=== PATIENT | female | born 1985 | race Caucasian/White ===

== ENCOUNTER 2017-06-26 14:19 | Emergency (ER) | payer SELFPAY ==
[2017-06-26] MEDS ORDERED: ONDANSETRON DISINTEGRATING 4 MG TAB PO ONE (15:06)
--- NOTE | 2017-06-26 15:41 | EDPHY ---
H & P Time Seen by Provider: 06/26/17 15:19 HPI/ROS: CHIEF COMPLAINT: Facial swelling HISTORY OF PRESENT ILLNESS: The patient is a 31-year-old female who presents emergency department with left facial swelling. Patient states that she has had a known cavity in her left upper tooth. For the past 2 days she has had increased left facial swelling. Her face is tender to touch and is uncomfortable. She describes her pain is moderate. She also has increased discomfort in her upper tooth. She reports a blister breaking inside of her mouth in the left upper side yesterday. She has had nausea and vomiting today. No fever. No abdominal pain. No dysuria frequency. No focal neurologic deficits. No headache. REVIEW OF SYSTEMS: My complete review of systems is negative except as mentioned in the HPI. Past Medical/Surgical History: Includes frontal movements disease, kidney stones, sepsis secondary to kidney infection," kidney issues" Past surgical history: Cholecystectomy Last menstrual period is now. Previous menstrual period 1 month ago. Smoking Status: Current every day smoker Physical Exam: Vitals noted. 37. 106/67, 88, 16, 95% on room air GENERAL: Well-appearing, in no acute distress, alert. HEENT: the patient has mild swelling on the left side of her face. It is not warm to touch. There is minimal erythema. She has mild tenderness palpation over her zygomatic arch and left cheek. No fluctuance. The patient has no obvious dental fracture. She has a ruptured blister in the left upper alveolar ridge. NECK: No thyromegaly, no lymphadenopathy, supple. RESPIRATORY: Clear to auscultation bilaterally, no rales, rhonchi or wheezing. CVS: Regular rate and rhythm, no rubs, murmurs, or gallops. ABDOMEN: Soft, nontender, nondistended, no organomegaly. BACK: Normal to inspection, no CVA tenderness. SKIN: Normal color, no rash, warm, dry. No pallor. EXTREMITIES: No pedal edema, no calf tenderness, no Homans sign or cords, no joint swelling. NEURO/PSYCH: Alert and oriented x3, normal mood and affect, normal motor sensory exam. No obvious cranial nerve deficit. Constitutional: Initial Vital Signs Temperature (C) 37 C 06/26/17 14:22 Heart Rate 88 06/26/17 14:22 Respiratory Rate 16 06/26/17 14:22 Blood Pressure 106/67 06/26/17 14:22 O2 Sat (%) 95 06/26/17 14:22 O2 Delivery Mode Room Air Allergies/Adverse Reactions: No Known Drug Allergies Allergy (Verified 06/26/17 14:29) Home Medications: Medication Instructions Recorded Penicillin V Potassium [Pen Vk] 500 mg PO TID #21 tab 06/26/17 Medical Decision Making - Diagnostics Imaging Results: Imaging Impressions Face CT 06/26/17 17:22 Impression: Mild inflammatory stranding in the left cheek superficial to suspected dental cavity at the apex of the left first premolar. No subperiosteal abscess or evidence of osteomyelitis. Findings discussed with Emergency Department physician, Seema Dale M.D. , on June 26, 2017 at 1827. E:amm ED Course/Re-evaluation: In the emergency department I discussed possible etiologies with the patient. IV was placed. Laboratory studies were ordered. Ordered CT with IV contrast once her and kidney function are resulted. Patient given Toradol 30 mg IV. The white count was elevated at 11. Chemistry panel is unremarkable. CT with IV contrast ordered. CT with IV contrast: Please refer the dictated report by Dr. Tineo. No fluid collection or abscess. I discussed the result with the patient. I informed her of the importance of close follow-up with a dentist. She will be given a prescription for antibiotics, but she is aware this will not resolve her problem. She felt comfortable with the plan for discharge. She was given a prescription of penicillin. She is given the 1st dose in the emergency department. Differential Diagnosis: My differential includes but is not limited to dental abscess, dental caries, facial abscess, facial cellulitis - Data Points Laboratory Results: Laboratory Results 06/26/17 16:00 06/26/17 16:00 06/26/17 06/26/17 06/26/17 16:00 16:00 16:00 WBC 11.57 10^3/uL H 10^3/uL (3.80-9.50) RBC 4.17 10^6/uL L 10^6/uL (4.18-5.33) Hgb 13.1 g/dL g/dL (12.6-16.3) Hct 38.0 % % (38.0-47.0) MCV 91.1 fL fL (81.5-99.8) MCH 31.4 pg pg (27.9-34.1) MCHC 34.5 g/dL g/dL (32.4-36.7) RDW 12.2 % % (11.5-15.2) Plt Count 246 10^3/uL 10^3/uL (150-400) MPV 10.4 fL fL (8.7-11.7) Neut % (Auto) 75.0 % H % (39.3-74.2) Lymph % (Auto) 15.8 % % (15.0-45.0) Beadle % (Auto) 7.3 % % (4.5-13.0) Eos % (Auto) 1.2 % % (0.6-7.6) Baso % (Auto) 0.4 % % (0.3-1.7) Nucleat RBC Rel Count 0.0 % % (0.0-0.2) Absolute Neuts (auto) 8.67 10^3/uL H 10^3/uL (1.70-6.50) Absolute Lymphs (auto) 1.83 10^3/uL 10^3/uL (1.00-3.00) Absolute Monos (auto) 0.85 10^3/uL H 10^3/uL (0.30-0.80) Absolute Eos (auto) 0.14 10^3/uL 10^3/uL (0.03-0.40) Absolute Basos (auto) 0.05 10^3/uL 10^3/uL (0.02-0.10) Absolute Nucleated RBC 0.00 10^3/uL 10^3/uL (0-0.01) Immature Gran % 0.3 % % (0.0-1.1) Immature Gran # 0.03 10^3/uL 10^3/uL (0.00-0.10) Sodium 137 mEq/L mEq/L (134-144) Potassium 4.1 mEq/L mEq/L (3.5-5.2) Chloride 103 mEq/L mEq/L (97-110) Carbon Dioxide 20 mEq/l L mEq/l (22-31) Anion Gap 14 mEq/L mEq/L (8-16) BUN 10 mg/dL mg/dL (7-23) Creatinine 0.5 mg/dL L mg/dL (0.6-1.0) Estimated GFR > 60 Glucose 80 mg/dL mg/dL (70-100) Calcium 9.4 mg/dL mg/dL (8.5-10.4) Beta HCG, Qual NEGATIVE Medications Given: Discontinued Medications Ketorolac Tromethamine (Toradol) 30 mg IVP EDNOW ONE Stop: 06/26/17 15:43 Last Admin: 06/26/17 15:58 Dose: 30 mg Ondansetron HCl (Zofran Odt) 4 mg PO EDNOW ONE Stop: 06/26/17 15:07 Last Admin: 06/26/17 15:08 Dose: 4 mg Departure - Departure Disposition: Home, Routine, Self-Care Clinical Impression: Left facial swelling, Dental caries Condition: Good Instructions: Dental Caries (ED) Additional Instructions: Take your entire course of antibiotics. This will not cure your problem. You need to see a dentist to evaluate your dental issue. Referrals: [facility] [Outside] - As per Instructions [facility] [Outside] - As per Instructions [facility] [Outside] - 2-3 days, call for appt.
[2017-06-26] MEDS ORDERED: KETOROLAC 30 MG/1 ML SDV IVP ONE (15:42)
[2017-06-26 16:10] LABS: % IMMATURE GRANULYOCYTES 0.3 % (0.0-1.1); ABSOLUTE IMMATURE GRANULOCYTES 0.03 10^3/uL (0.00-0.10); ADD DIFF? NO; ADD MORPH? NO; ADD SCAN? NO; ATYPICAL LYMPHOCYTE FLAG 0 (0-99); FRAGMENT RBC FLAG 0 (0-99); HEMOGLOBIN 13.1 g/dL (12.6-16.3); LEFT SHIFT FLG 0 (0-99); LIPEMIA HEMOLYSIS FLAG 90 (0-99); MEAN CELL HEMOGLOBIN 31.4 pg (27.9-34.1); MEAN CELL HEMOGLOBIN CONCENTR. 34.5 g/dL (32.4-36.7); MEAN CELL VOLUME 91.1 fL (81.5-99.8); MEAN PLATELET VOLUME 10.4 fL (8.7-11.7); PLATELET CLUMPS FLAG 10 (0-99); PLATELET COUNT 246 10^3/uL (150-400); RED BLOOD CELL COUNT 4.17 10^6/uL (4.18-5.33); RED CELL DISTRIBUTION WIDTH 12.2 % (11.5-15.2)
[2017-06-26 17:02] LABS: ANION GAP 14 mEq/L (8-16); CALCIUM 9.4 mg/dL (8.5-10.4); CARBON DIOXIDE 20 mEq/l (22-31); CHLORIDE 103 mEq/L (97-110); CREATININE 0.5 mg/dL (0.6-1.0); GLOMERULAR FILTRATION RATE > 60; GLUCOSE 80 mg/dL (70-100); POTASSIUM 4.1 mEq/L (3.5-5.2); SODIUM 137 mEq/L (134-144)
[2017-06-26] MEDS ORDERED: IOPAMIDOL (ISOVUE-300) 100 ML BTL ONE (17:35)
[2017-06-26 17:59] VITALS: RESP 17
[2017-06-26] MEDS ORDERED: PENICILLIN VK 500 MG TAB PO ONE (18:49)
[2017-06-26 19:06] VITALS: BP 104/76; PULSE 89; TEMP 98.8; O2SAT 98
== END 2017-06-26 19:05 | disposition home or self-care (01) ==
DX: K02.9 Dental caries, unspecified (principal); F17.200 Nicotine dependence, unspecified, uncomplicated
CPT/HCPCS: 96374; J1885; Q9967